=== PATIENT | male | born 2000 | race Caucasian/White ===

== ENCOUNTER 2018-03-22 14:07 | Inpatient (IN) | payer BC, OTHER ==
[~2018-03-22] VITALS: Ht 175.3 cm; Wt 90.7 kg
--- NOTE | 2018-03-22 15:20 | NUR ---
PRE-ADMISSION RECEIVED PT IN INTAKE. PT IS A 17 Y/O M ADMITTED FOR MEDICALLY SUPERVISED BENZO, CODEINE, COCAINE, WITHDRAWAL. INITIAL VS ARE BP: 138/79, HR: 85, RR; 18, O2SAT: 97%. RECEIVED PT SITTING IN CHAIR, WEARING A HOODED SWEATSHIRT WITH THE CORDOVA OVER HIS HEAD, PT FACE IS MILDLY FLUSHED, APPEARS FRIENDLY, NERVOUS, HAS GOOD EYE CONTACT. PT PRESENTS DIAPHORESIS, CHILLS; PT STATES HE IS ANXIOUS AND HAS A GENERALIZED FEELING OF DISTRESS AND DISCOMFORT. PT IS SELF AMBULATORY AND HAS A STEADY GAIT. PT IS THE PRIMARY SOURCE OF INFO. PT HAS NKA, MEDICAL HX OF ANXIETY AND DEPRESSION. PT REPORTS HAVING A SX HX OF METAL NATTY OF FEMUR FX, PINS IN R WRIST, METAL PLATE IN L FA. PT REPORTS HAVING A SZ THIS PAST WEEKEND R/T W/D. PT STATES HE DID NOT CALL 911 NOR GO TO THE HOSPITAL/DOCTOR. PT STATES HE SMOKES 20 CIGS/1 PACK DAILY. SUBSTANCE USE HX: 1. BENZO XANAX 6 MG PO DAILY FOR 2 WEEKS. LAST USED 2 DAYS AGO 03/20/18. FIRST USED AT 15 Y/O. 2. OPIATE CODEINE 3 OZ PO DAILY FOR 2 WEEKS. LAST USED TODAY 03/22/18 AM. FIRST USED AT 17 Y/O. 3. COCAINE 8 BALL DAILY FOR 5 WEEKS. LAST USED 2 DAYS AGO 03/20/18. FIRST USED 17 Y/O. 4. ECSTASY 3 PILLS FOR 1 DAY, LAST USED 2 WEEKS AGO. 5. KETAMINE 1 G FOR 1 DAY, LAST USED 2 WEEKS AGO. 6. ACID 2 TABS 1 DAY, LAST USED 2 WEEKS AGO. PT REPORTS HE HAS BEEN TO [place] AT [facility] FROM OCT TO DEC 28, 2017. LONGEST PERIOD OF SOBRIETY IS 4 MONTHS THAT ENDED FROM THIS RELAPSE.
[2018-03-22] MEDS ORDERED: LORAZEPAM 2 MG/1 ML VIAL IM PRN (15:45)
[2018-03-22] MEDS ORDERED: diphenhydrAMINE 50 MG CAPSULE PO PRN (15:45)
[2018-03-22] MEDS ORDERED: DIAZEPAM 5 MG TABLET PO PRN (15:45)
[2018-03-22] MEDS ORDERED: METHOCARBAMOL 750 MG TABLET PO PRN (15:45)
[2018-03-22] MEDS ORDERED: LOPERAMIDE HCL 2 MG CAPSULE PO PRN ×2 (15:45)
[2018-03-22] MEDS ORDERED: DIAZEPAM 10 MG TABLET PO PRN ×2 (15:45)
[2018-03-22] MEDS ORDERED: MAGNESIUM HYDROXIDE 30 ML LIQUID UDC PO PRN (15:45)
[2018-03-22] MEDS ORDERED: MAG HYDROX/AL HYDROX/SIMETH 30 ML LIQUID UDC PO PRN (15:45)
[2018-03-22] MEDS ORDERED: ONDANSETRON 4 MG/2 ML VIAL IM PRN (15:45)
[2018-03-22] MEDS ORDERED: DICYCLOMINE HCL 20 MG TABLET PO PRN (15:45)
[2018-03-22] MEDS ORDERED: ONDANSETRON ODT 4 MG TAB.RAPDIS SL PRN (15:45)
[2018-03-22] MEDS ORDERED: MIRALAX 17 GM POWD.PACK PO PRN (15:45)
[2018-03-22] MEDS ORDERED: ACETAMINOPHEN 325 MG TABLET PO PRN (15:45)
[2018-03-22] MEDS: PHENOBARBITAL 60 MG TABLET PO SCH ×2 (16:06→20:58)
[2018-03-22 16:30] VITALS: BP 109/58
[2018-03-22 16:45] LABS: *AMPHETAMINE, URINE NEGATIVE (NEGATIVE); *BARBITURATE, URINE NEGATIVE (NEGATIVE); *CANNABINOID, URINE POSITIVE (NEGATIVE); *COCCAINE, URINE POSITIVE (NEGATIVE); *OPIATE, URINE NEGATIVE (NEGATIVE); *PHENCYCLIDINE SCREEN,URINE NEGATIVE (NEGATIVE)
--- NOTE | 2018-03-22 18:17 | NUR ---
ADMISSION NOTE PT HAS BEEN ADMITTED TO [facility] ON 03/22/18 AT 1525. PT IS A 17 Y/O M ADMITTED FOR MEDICALLY SUPERVISED BENZO, CODEINE, COCAINE, WITHDRAWAL. INITIAL VS ARE BP: 138/79, HR: 85, RR; 18, O2SAT: 97%. HT: 5'9, WT: 200 LBS. PT HAS A HOODED SWEATSHIRT WITH THE CORDOVA OVER HIS HEAD, PT FACE IS MILDLY FLUSHED, APPEARS FRIENDLY, NERVOUS, HAS GOOD EYE CONTACT, FIDGETY IN SEAT. INITIAL CIWA 13. PT PRESENTS ANXIETY, DIAPHORESIS, CHILLS, RESTLESSNESS, SLIGHT NUMBNESS ON TIPS OF FINGERS, GENERALIZED BODY ACHES, MILD HEADACHE, FINE TREMORS, DYSPHORIA, ANHEDONIA, DIFFICULTY CONCENTRATING, DIFFICULTY THINKING; PT STATES HE IS ANXIOUS AND HAS A GENERALIZED FEELING OF DISTRESS AND DISCOMFORT AND IRRITABILITY. PT IS SELF AMBULATORY AND HAS A STEADY GAIT. PT IS THE PRIMARY SOURCE OF INFO. PT HAS NKA, MEDICAL HX OF ANXIETY AND DEPRESSION. PT REPORTS HAVING A SX HX OF METAL NATTY OF FEMUR FX, PINS IN R WRIST, METAL PLATE IN L FA. DENIES HAVING A CURRENT PCP OR PSYCHIATRIST. PT REPORTS HAVING A SZ THIS PAST 2 DAYS AGO R/T W/D. PT STATES HE DID NOT CALL 911 NOR GO TO THE HOSPITAL/DOCTOR. PT STATES HE COULD NOT GET ANY MORE BENZOS AND HAD STOPPED ABRUPTLY. PT STATES HE SMOKES 20 CIG/1 PACK DAILY. SUBSTANCE USE HX: 1. BENZO XANAX 6 MG PO DAILY FOR 2 WEEKS. LAST USED 2 DAYS AGO 03/20/18. FIRST USED AT 15 Y/O. 2. OPIATE CODEINE 3 OZ PO DAILY FOR 2 WEEKS. LAST USED TODAY 03/22/18 AM. FIRST USED AT 17 Y/O. 3. COCAINE 8 BALL DAILY FOR 5 WEEKS. LAST USED 2 DAYS AGO 03/20/18. FIRST USED 17 Y/O. 4. ECSTASY 3 PILLS FOR 1 DAY, LAST USED 2 WEEKS AGO. 5. KETAMINE 1 G FOR 1 DAY, LAST USED 2 WEEKS AGO. 6. ACID 2 TABS 1 DAY, LAST USED 2 WEEKS AGO. PT REPORTS HE HAS BEEN TO [place] AT [facility] FROM OCT TO DEC 28, 2017. LONGEST PERIOD OF SOBRIETY IS AROUND 4 MONTHS THAT ENDED FROM THIS RELAPSE. PT REPORTS HE HAS BEEN HOMELESS AND FOR THE PAST 2 WEEKS HE HAS BEEN LIVING OUT OF HIS CAR. PT REPORTS HAVING A GOOD SUPPORT SYSTEM. PT VERBALIZED HIS CLOSE FRIENDS HAVE NOTICED A CHANGE IN HIM SINCE USING DRUGS AND HAS GREATLY IMPACTED HIS FRIENDSHIP WITH THEM. PT STATES HE CARES ABOUT THEM AND THIS HAS HELPED HIM SEE THE CHANGES IN HIMSELF WELL. PT IS NOW MOTIVATED TO GET SOBER. PT STATES, ""DIDN'T LIKE THE WAY PEOPLE WERE SEEING ME, DIDN'T LIKE HOW I SAW MYSELF. I DIDN'T LIKE THE PERSON I WAS BECOMING. I NEED TO GET MY PRIORITIES STRAIGHT. IF I DON'T DO THIS I AM GOING TO GET STUCK. I NEED HELP." PT STATES HE IS DETERMINED TO GET SOBER AND WANTS TO CONTINUE TREATMENT AFTER DETOX. ENCOURAGED PT TO INCREASE FLUIDS TO FACILITATE IN DETOX AND FOR HYDRATION. EDUCATED PT WITH UNIT RULES, ACTIVITY/GROUPS, AND CURRENT MED REGIMEN. SIDE RAILS X2 AND PADDED, BED IN LOW POSITION. CALL LIGHT WITHIN REACH. SAFETY MEASURES IN PLACE. WILL CONTINUE TO MONITOR AND PROVIDE SUPPORT.
--- NOTE | 2018-03-22 18:51 | NUR ---
END OF SHIFT LAST CIWA 13. PT HAS BEEN GIVEN THE FIRST PHENOBARBITAL DOSE @1700. PT HAS BEEN ISOLATIVE IN ROOM SINCE ADMISSION AND IS CURRENTLY LAYING IN BED WITH EYES CLOSED, APPEARS TO BE SLEEPING. PT HAS NOT ATE DINNER. FLUID INTAKE: 1000ML. VOIDED X1, BM 0. SAFETY MEASURES IN PLACE. WILL GIVE ENDORSEMENT TO EVENT DESIGNER NURSE.
--- NOTE | 2018-03-22 19:14 | NUR ---
Start of shift note Received report from day shift nurse. Pt is a 17 yo male, A+Ox4 presenting to [facility] for Benzo/Opiate/Cocaine withdrawal. Pt noted to be anxious, restless, and agitated. Pt has HX of multiple FXs which will be monitored during shift. Pt is on 4 day Phenobarbital taper, tolerated well. Respirations even and unlabored. Will continue to monitor.
[2018-03-22 19:59] LABS: BASOPHILS # (AUTO) 0.1 K/uL (0.0-8.0); BASOPHILS % (AUTO) 0.9 % (0.0-2.0); EOSINOPHILS # (AUTO) 0.2 K/uL (0.0-0.7); EOSINOPHILS % (AUTO) 2.8 % (0.0-7.0); HEMATOCRIT 41.9 % (36.7-47.1); LYMPHOCYTES # (AUTO) 2.9 K/uL (20.0-40.0); LYMPHOCYTES % (AUTO) 38.7 % (20.5-74.5); MEAN CORPUSCULAR HEMOGLOBIN 28.7 uug (23.8-33.4); MEAN CORPUSCULAR HGB CONC 33 g/dL (32.5-36.3); MEAN CORPUSCULAR VOLUME 86.1 fL (73.0-96.2); MONOCYTES # (AUTO) 0.5 K/uL (2.0-10.0); MONOCYTES % (AUTO) 6.6 % (0-11); NEUTROPHILS # (AUTO) 3.8 K/uL (1.8-8.9); PLATELET COUNT (AUTO) 234 K/uL (152-348); RED BLOOD CELL COUNT(AUTO) 4.87 MIL/uL (4.06-5.63); WHITE BLOOD COUNT (AUTO) 7.4 K/uL (3.6-10.2)
[2018-03-22 20:16] LABS: ALANINE AMINOTRANSFERASE 17 U/L (16-63); ALKALINE PHOSPHATASE 179 U/L (50-136); ASPARTATE AMINOTRANSFERASE 12 U/L (15-37); BILIRUBIN,TOTAL 0.1 mg/dL (0.2-1.0); CARBON DIOXIDE 30 mmol/L (21-32); CHLORIDE 106 mmol/L (98-107); CREATININE 1.1 mg/dL (0.6-1.3); GLUCOSE 97 mg/dL (74-106); POTASSIUM 3.7 mmol/L (3.5-5.1); TOTAL PROTEIN, SERUM 6.8 g/dL (6.4-8.2); UREA NITROGEN, BLOOD 9 mg/dL (7-18)
[2018-03-22 20:24] VITALS: BP 137/70
[2018-03-22 20:26] LABS: THYROID STIMULATING HORMONE 0.941 mIU/mL (0.358-3.740)
[2018-03-22] MEDS: GABAPENTIN 300 MG CAPSULE PO SCH (20:58)
[2018-03-22 22:27] LABS: ETHANOL < 3 MG/DL (0-0)
[2018-03-23 00:56] VITALS: BP 108/60
[2018-03-23 04:04] VITALS: BP 115/73
--- NOTE | 2018-03-23 06:56 | NUR ---
End of shift note Pt was continuously noted to be agitated, anxious, and restless. Pt remained in room for entire shift. Pt is on 4 day Phenobarbital taper and PRN Valium, tolerated well. Pt was not given any PRN medications during shift. Pt slept for a total of 10 HRS. Last CIWA: 8 @0400. Respirations even and unlabored. Will endorse to day shift nurse.
--- NOTE | 2018-03-23 07:30 | NUR ---
Start of Shift Notes: Received patient in his room. He states "I feel OK." He appears disheveled. Room is messy. Patient is a 17 year old male admitted for BZO/opiate withdrawal who was placed on a 4-day Phenobarbital taper as ordered and PRN Valium as ordered. Educated patient on his current plan of care for the day and his medication regimen. Encouraged oral fluid intake and encouraged group participation to learn new skills to prevent relapse. Will continue to monitor.
[2018-03-23 08:00] VITALS: BP 124/65
[2018-03-23] MEDS: CLONIDINE HCL 0.1 MG TABLET PO PRN (08:59)
[2018-03-23] MEDS: GABAPENTIN 300 MG CAPSULE PO SCH ×2 (08:59→20:07)
[2018-03-23] MEDS: IBUPROFEN 600 MG TABLET PO PRN (08:59)
[2018-03-23] MEDS: PHENOBARBITAL 60 MG TABLET PO SCH ×3 (08:59→20:07)
--- NOTE | 2018-03-23 08:59 | NUR ---
Clonidine 0.1mg/Motrin/Robaxin 750 mg PO given: CIWA 14, patient presented with anxiety, agitation, tremors, sweating, chills, and sweating, headache of 6/10 and myalgia 6/10. Medicated patient with Clonidine 0.1mg PO, Robaxin and Motrin as ordered with all his due meds. Will monitor for effectiveness.
[2018-03-23] MEDS ORDERED: TUBERCULIN,PURIF.PROT.DERIV. 5 TU/0.1 ML TEST ID ONE (09:00)
--- NOTE | 2018-03-23 09:59 | NUR ---
Re-assessment: Clonidine/Motrin/Robaxin Patient verbalizes that he feels more at ease, less sweating, less tremors noted. PL is now 2/10. PRN Clonidine, Motrin and Robaxin was effective.
[2018-03-23 12:00] VITALS: BP_SYST 124; BP_SYST 98; BP_DIAS 65
[2018-03-23 16:00] VITALS: BP 130/74
--- NOTE | 2018-03-23 19:04 | NUR ---
End of Shift Notes: Patient continues to be on 4-day Phenobarbital taper as ordered. He is currently on day 1. VS monitored closely. No significant abnormalities noted. Withdrawal symptoms were closely monitored. Initial CIWA 14, patient presented with anxiety, agitation, tremors, sweats, chills, hot flashes and myalgia. Medicated patient with Clonidine, Motrin and Robaxin at 0859 with help after 1 hour. Last CIWA 10. Patent verbalizes that Phenobarbital has been effective in reducing his withdrawal symptoms. Unable to participate in group and activities due to his withdrawal symptoms. Seen and examined by Dr. Moore. All needs met and attended. Will continue to monitor closely.
--- NOTE | 2018-03-23 19:50 | NUR ---
Start of Shift Note Received a 17 y/o male px, admitted for medically supervised withdrawal from Benzos, Opiates, cocaine, Ecstasy, ketamine and LSD. Px is placed on 4 day Phenobarbital taper started 03/22/2018. Px is tolerating it. Last reported CIWA 10 by AM shift nurse. During the rounds at 1950, px is awake on bed in right side lying position. Px appears anxious, unshaven, with flat affect. Px stated "my anxiety is 8/10." Px complained of pressure on his chest. VS are as follows BP= 131/61, LA= 66, RR= 16, T= 97.7 and O2sat= 98% on RA. Bed on lowest position, side rails up 2x, and call light within reach. We'll continue to monitor.
[2018-03-23 20:00] VITALS: BP 131/61
--- NOTE | 2018-03-23 20:07 | NUR ---
PRN Tylenol Px was given Tylenol 325 mg/tab, 2 tabs PO as PRN for chest pain characterized by pressure. BP= 131/61. We'll continue to monitor.
--- NOTE | 2018-03-23 21:10 | NUR ---
Reassessment of chest pain Px stated that there is no more pain/ pressure on his chest.
[2018-03-24] VITALS: BP 122/63
[2018-03-24 04:00] VITALS: BP 115/60
--- NOTE | 2018-03-24 04:00 | NUR ---
CIWA deferred CIWA deferred at 0000 and 0400 due that the px is asleep, to assess if the px is awake per doctor's order. We'll continue to monitor.
[2018-03-24 06:06] LABS: HEPATITIS B SURFACE AG Negative (Negative)
--- NOTE | 2018-03-24 07:06 | NUR ---
End of Shift Note During the shift at 2006, px received Tylenol 650 mg PO as PRN medication for chest pain characterized by pressure. It was effective. Px's oral intake is 1L, voided 2x, No BM. Px slept for total of 8 hours. At 0630, px is asleep on bed in left side lying position. Last CIWA 6. Bed on lowest position, side rails up 2x, and call light within reach. We'll continue to monitor. Px endorsed to AM shift nurse.
--- NOTE | 2018-03-24 07:30 | NUR ---
Start of Shift [facility] received report on 17 year old male admitted to [facility] on 03/22/18 for medical management of Benzodiazepine, Codeine and poly-substance withdrawals. Pt endorses NKA, full code and regular diet. Pt endorses no PMH, with multiple orthopedic procedures. Pt currently on a Phenobarbital taper, tolerating well, last CIWA 6, per report. Pt administered Tylenol(pain on NOC, per report. [facility] encounters pt in his room resting with eyes closed, rise and fall of chest noted, with even and unlabored respiration. Bed in low positions with wheels locked and side rails up x2. Will continue to monitor, support and encourage according to plan of care.
[2018-03-24 08:36] VITALS: BP 117/67
[2018-03-24] MEDS: GABAPENTIN 300 MG CAPSULE PO SCH ×3 (08:54→21:28)
[2018-03-24] MEDS ORDERED: PHENOBARBITAL 60 MG TABLET PO SCH ×3 (09:00→21:00)
[2018-03-24 12:24] VITALS: BP 143/81
[2018-03-24 16:30] VITALS: BP 143/86
--- NOTE | 2018-03-24 18:53 | NUR ---
End of Shift Field Secretary provided report on 17 year old male admitted to [facility] on 03/22/18 for medical management of Benzodiazepine, Codeine and poly-substance withdrawals. Pt endorses NKA, full code and regular diet. Pt endorses no PMH, with multiple orthopedic procedures. Pt currently on a Phenobarbital taper, tolerating well, last CIWA 6, recorded at 1630. Pt not administered any PRN medication. Pt is A/O x4 and able to make needs known. Pt has isolated to room and self. Somnolent and lethargic at times. Bed in low positions with wheels locked and side rails up x2.
--- NOTE | 2018-03-24 19:12 | NUR ---
Start of shift note Received report from day shift nurse. Pt is a 17 yo male, A+Ox4, presenting to [facility] for Benzo/Opiate/Cocaine withdrawal. Pt noted to be agitated, anxious, and restless. Pt has HX of multiple FXs which will be monitored during shift. Pt is on 4 day Phenobarbital taper, tolerated well. Respirations even and unlabored. Will continue to monitor.
[2018-03-24 20:15] VITALS: BP 137/82
[2018-03-25 00:19] VITALS: BP 132/84
[2018-03-25 04:34] VITALS: BP 129/87
--- NOTE | 2018-03-25 06:57 | NUR ---
End of shift note Pt was continuously noted with restlessness, agitation, and anxiety. Pt remained in room for entire shift. Pt is on 4 day Phenobarbital taper and PRN Valium, tolerated well. Pt was not given any PRN medications during shift. Pt slept for a total of 10 HRS. Last CIWA: 6 @0400. Respirations even and unlabored. Will endorse to day shift nurse.
--- NOTE | 2018-03-25 07:39 | NUR ---
Start of shift Patient 17y/o male admitted for medically supervised withdrawal of benzos, codeine, cocaine, ectasy, ketamine, and LSD. Patient alert & oriented to name, place & situation. Presents with depressed mood, flat affect, and anxious. Denies c/o N/V/D. Pt on 4 day Phenobarbital taper. At 0400 last COWS 6. Patient slept 10 hours. Patient remained compliant with medication regimen. Encourage pt to attend group therapy to learn/develop coping skills to prevent relapse. Pt NKA, FULL CODE. Bed in lowest/locked position, side rails up X2, call light within reach. Will continue to monitor for withdrawal symptoms.
[2018-03-25 08:00] VITALS: BP 112/56
[2018-03-25] MEDS: PHENOBARBITAL 60 MG TABLET PO SCH ×2 (09:03→20:05)
[2018-03-25] MEDS: GABAPENTIN 300 MG CAPSULE PO SCH ×3 (09:03→20:05)
[2018-03-25 12:00] VITALS: BP 136/89
[2018-03-25 16:00] VITALS: BP 133/91
--- NOTE | 2018-03-25 18:19 | NUR ---
Therapist prompted client to attend daily group sessions. Client related that he would attend the next group.
--- NOTE | 2018-03-25 18:38 | NUR ---
End of shift Patient 17y/o male admitted for medically supervised withdrawal of benzos, codeine, cocaine, ecstasy, ketamine, and LSD. Patient alert & oriented to name, place & situation. Presents with depressed mood, flat affect, and anxious. Denies c/o N/V/D. Pt on 4 day Phenobarbital taper and tolerating well. At 1600 last CIWA 8. Patient remains compliant with medication regimen. Encourage pt to attend group therapy to learn/develop coping skills to prevent relapse. He attended both group therapies today. Pt NKA, FULL CODE. Adequate PO fluids 7000 ml, voids X 6, BM X 1. Bed in lowest/locked position, side rails up X2, call light within reach. Will continue to monitor for withdrawal symptoms. Endorsed to PM shift.
--- NOTE | 2018-03-25 19:58 | NUR ---
START OF SHIFT NOTE Received report from outgoing nurse. Pt. is a 17 y/o male admitted for medically supervised withdrawal from Benzodiazepines. Pt. is on a 4 day Phenobarbital taper. Pt. is A/O to person, place, time, and purpose. Pt. presents with flat affect, depressed mood, anxiety, restlessness, and body aches. Pt. denies S/I and H/I. Pt. received no PRN medications during previous shift. Last CIWA 8 @ 1600. Call light within reach. Pt. will continue to be monitored and needs met.
[2018-03-25 20:00] VITALS: BP 180/87
[2018-03-25] MEDS: CLONIDINE HCL 0.1 MG TABLET PO PRN (20:06)
--- NOTE | 2018-03-25 20:06 | NUR ---
PRN MEDICATION PRN Clonidine given. Pt. had BP of 180/87. All other V/S stable. Will reassess in 1 hour.
--- NOTE | 2018-03-25 21:06 | NUR ---
PRN REASSESSMENT Pt. in bed and BP 112/66. Pt.'s breathing is even and unlabored.
--- NOTE | 2018-03-26 | NUR ---
RN NOTE Pt. deferred CIWA and refused V/S. Pt. is in bed w/ his eyes closed. Pt.'s breathing is unlabored and even.
--- NOTE | 2018-03-26 04:08 | NUR ---
RN NOTE Pt. deferred CIWA and refused V/S. Pt. is in bed w/ his eyes closed. Pt.'s breathing is unlabored and even.
--- NOTE | 2018-03-26 07:07 | NUR ---
END OF SHIFT NOTE Endorsed report to oncoming nurse. Pt. is a 17 y/o male admitted for medically supervised withdrawal from Benzodiazepines. Pt. is on a 4 day Phenobarbital taper. Pt. is A/O to person, place, time, and purpose. Pt. continues to present with flat affect, depressed mood, anxiety, restlessness, and body aches. Pt. denies S/I and H/I. Pt. received PRN Clonidine 0.1 mg @ 2005 for elevated BP, it was noted effective. Pt.s fluid intake was 2000 mL. Pt. voided 2 times and slept for 8 hrs. Last CIWA 9 @ 1999. Call light within reach.
--- NOTE | 2018-03-26 07:32 | NUR ---
Start of shift Patient 17y/o male admitted for medically supervised withdrawal of benzos, codeine, cocaine, ecstasy, ketamine, and LSD. Patient alert & oriented to name, place & situation. Presents with depressed mood, flat affect, and anxious. Denies c/o N/V/D. Pt on 4 day Phenobarbital taper and tolerating well. Last CIWA 9. PRN given last night Clonidine. Patient remains compliant with medication regimen. Encourage pt to attend group therapy to learn/develop coping skills to prevent relapse. Pt NKA, FULL CODE. Bed in lowest/locked position, side rails up X2, call light within reach. Will continue to monitor for withdrawal symptoms.
[2018-03-26 08:00] VITALS: BP 112/64
[2018-03-26] MEDS: HYDROXYZINE PAMOATE 25 MG CAPSULE PO PRN ×3 (08:46→21:01)
[2018-03-26] MEDS: GABAPENTIN 300 MG CAPSULE PO SCH ×3 (08:46→21:01)
--- NOTE | 2018-03-26 08:47 | NUR ---
PRN VISTARIL 25 MG PO FOR ANXIETY
[2018-03-26] MEDS ORDERED: PHENOBARBITAL 60 MG TABLET PO SCH (09:00)
--- NOTE | 2018-03-26 09:50 | NUR ---
REASSESS VISTARIL- PT REPORTS ANXIETY IMPROVED AND FEELS BETTER.
[2018-03-26 12:00] VITALS: BP 142/91
[2018-03-26 16:00] VITALS: BP 143/85
--- NOTE | 2018-03-26 16:27 | NUR ---
PRN VISTARIL 25 MG PO FOR ANXIETY
[2018-03-26] MEDS ORDERED: IBUP-1955 PO (17:05)
[2018-03-26] MEDS ORDERED: HYDR-3895 PO (17:05)
[2018-03-26] MEDS ORDERED: METH-406 PO (17:05)
[2018-03-26] MEDS ORDERED: CLON0.1T14 PO (17:05)
[2018-03-26] MEDS ORDERED: DIPH50CA37 PO (17:05)
[2018-03-26] MEDS ORDERED: GABA-534 PO ×2 (17:05)
--- NOTE | 2018-03-26 17:30 | NUR ---
REASSESS VISTARIL-PT REPORTS ANXIETY IS BETTER AND HE FEELS BETTER.
--- NOTE | 2018-03-26 18:29 | NUR ---
End of shift Patient 17y/o male admitted for medically supervised withdrawal of benzos, codeine, cocaine, ecstasy, ketamine, and LSD. Patient alert & oriented to name, place & situation. Presents with depressed mood, flat affect, and anxious. Pt completed 4 day Phenobarbital taper and tolerated well. He will be discharged tomorrow. Last CIWA 10. PRN given today- Vistaril. Patient remains compliant with medication regimen. Encourage pt to attend group therapy to learn/develop coping skills to prevent relapse. He attended all group therapy sessions today. Adequate PO fluids 1950 ml, voids X 3, BM X1. NKA, FULL CODE. Fall and seizure precautions observed. Bed in lowest/locked position, side rails up X2, call light within reach. Will continue to monitor for withdrawal symptoms. Endorsed to PM shift.
--- NOTE | 2018-03-26 19:51 | NUR ---
START OF SHIFT NOTE Received report from outgoing nurse. Pt. is in his room and is A/O to person, place, time, and purpose. Pt. is presenting with anxiety, flat affect, worried demeanor, and withdrawn mood. Pt. denies any S/I or H/I. Pt. has been compliant with treatment plan and has attended group therapy sessions. Pt,. has completed taper and did receive PRN Vistaril 25 mg @ 0845 and 1600. Pt. is being discharged tomorrow 04/06/28. Last CIWA 10 @ 1600. Call light within reach. Pt. will continue to be monitored and needs met.
[2018-03-26 20:09] VITALS: BP 142/90
--- NOTE | 2018-03-26 21:01 | NUR ---
PRN ADMINISTRATION PRN Benadyl 50 mg and Vistaril 25 mg given. Pt. c/o anxiety and insomnia. Will reassess in 1 hour.
--- NOTE | 2018-03-26 22:01 | NUR ---
PRN REASSESSMENT Pt. is in bed w/ his eyes closed. Pt.'s breathing is unlabored and even.
--- NOTE | 2018-03-27 00:13 | NUR ---
RN NOTE Pt. deferred CIWA and refused V/S. Pt. is in bed w/ his eyes closed. Pt.'s breathing is even and unlabored.
--- NOTE | 2018-03-27 04:18 | NUR ---
RN NOTE Pt. deferred CIWA and refused V/S. Pt. is in bed w/ his eyes closed. Pt.'s breathing is unlabored and even.
--- NOTE | 2018-03-27 07:06 | NUR ---
END OF SHIFT NOTE Endorsed report to oncoming nurse. Pt. is a 17 y/o ,peggy admitted for medically supervised withdrawal from Benzodiazepines. Pt. is in his room and is A/O to person, place, time, and purpose. Pt. continues to present with anxiety, flat affect, worried demeanor, and withdrawn mood. Pt. denies any S/I or H/I. Pt. has been compliant with treatment plan and has attended group therapy sessions. Pt. has completed taper and received PRN Vistaril 25 mg and Benadryl 50 mg @ 2100 for anxiety and insomnia, noted effective. Pt.s fluid intake was 2500 ml. Pt. voided 3 times, had 1 BM, and slept for 8 hrs. Last CIWA 8 @ 1999. Call light within reach.
--- NOTE | 2018-03-27 07:15 | NUR ---
START OF SHIFT : PATIENT IS A 17YR OLD MALE ADMITTED TO [facility] ON 03/22/18 FOR A MEDICALLY SUPERVISED WITHDRAWAL FROM BENZODIAZEPINES. HE HAS FINISHED A 4 DAY PHENOBARBITAL TAPER AND IS TO BE DISCHARGED THIS AM TO " [facility]". HE IS ASLEEP IN BED AT THIS TIME, BREATHING EVEN AND UNLABORED, SIDE RAIL UP X2. PRN MEDS GIVEN ON PM SHIFT : BENADRYL AND VISTARIL, HE SLEPT FOR 8+ HOURS AND LAST CIWA WAS 8. CONTINUE TO FOLLOW MD PLAN FOR DISCHARGE.
[2018-03-27 08:00] VITALS: BP 121/67
[2018-03-27] MEDS: GABAPENTIN 300 MG CAPSULE PO SCH (08:22)
[2018-03-27] MEDS: IBUPROFEN 600 MG TABLET PO PRN (08:22)
[2018-03-27] MEDS: HYDROXYZINE PAMOATE 25 MG CAPSULE PO PRN (08:22)
--- NOTE | 2018-03-27 08:22 | NUR ---
PRN VISTARIL/MOTRIN VISTARIL 25MG PO AND MOTRIN 600MG PO GIVEN FOR ANXIETY/HEADACHE WILL CONTINUE TO MONITOR
--- NOTE | 2018-03-27 09:22 | NUR ---
REASSESS PRN VISTARIL EFFECTIVE PATIENT STATES HE FEELS LESS ANXIOUS MOTRIN EFFECTIVE, PT STATES HEADACHE IS GONE.
--- NOTE | 2018-03-27 09:28 | NUR ---
DISCHARGE NOTE PATIENT HAS BEEN DISCHARGED TO [facility] ALL PAPERWORK SIGNED AND DATED, ALL PERSONAL BELONGINGS AND PRESCRIPTIONS RETURNED TO PT. PT STATES NO HI/SI AT THIS TIME VS STABLE BP 121/67 HR 71 T 97.6 LAST BM 03/27/18 PATIENT AMBULATED OFF THE UNIT AND WAS PICKED UP IN HOSPITAL LOBBY BY PRIVATE CAR "[employer]" FOR TRANSPORT TO [facility].
== END 2018-03-27 09:28 | disposition other institution (70) | DRG 895 ==
LOC: SRC 14:28
PROVIDERS: ADMIT Internal Medicine; ATTEND Internal Medicine
PROC: HZ2ZZZZ Detoxification Services for Substance Abuse Treatment (ICD-10-PCS; principal; 2018-03-22)
PROC: HZ41ZZZ Group Counseling for Substance Abuse Treatment, Behavioral (ICD-10-PCS; 2018-03-24)
DX: F13.230 Sedative, hypnotic or anxiolytic dependence with withdrawal, uncomplicated (principal); I15.9 Secondary hypertension, unspecified; F14.20 Cocaine dependence, uncomplicated; F17.210 Nicotine dependence, cigarettes, uncomplicated; Z59.0 Homelessness; Z81.3 Family history of other psychoactive substance abuse and dependence; F41.9 Anxiety disorder, unspecified; F16.10 Hallucinogen abuse, uncomplicated; Z59.1 Inadequate housing; F12.10 Cannabis abuse, uncomplicated; F32.9 Major depressive disorder, single episode, unspecified; F11.10 Opioid abuse, uncomplicated
CPT/HCPCS: 36415; 70030-TC; 80307; 80349; 80353; 83735; 84443; 85025; 86580; 86592; 86705; 86803; 87340; 87806; A4663; G0480; J8499; Q0163